=== PATIENT | male | born 1965 | race African-American/Black ===

== ENCOUNTER → 2018-09-24 14:29 | Outpatient (CLI) | payer BC ==
--- NOTE | 2018-09-29 14:51 | ST ---
PATIENT:ROSA LIANG MEDICAL RECORD: [id number] SEX: M LOCATION:[facility] ORDER #: ADMISSION DATE: 09/24/18 AGE OF PATIENT: 53 REFERRING PHYSICIAN: INTERPRETING PHYSICIAN: KAREN DURHAM MD DATE OF SERVICE: 09/24/2018 PROCEDURE: Treadmill stress test. Baseline ECG is normal. Exercised for 7 minutes under Hector protocol. Maximum heart rate 168 beats per minute, greater than 85% of max predicted. No ECG change for ischemia. No symptoms of ischemia. Normal blood pressure response to exercise. No arrhythmias noted. Fair exercise tolerance for age. TRANSINT:[id number] Voice Confirmation ID: [id number] DOCUMENT ID: [id number] KAREN DURHAM MD at 1451 CC: [id number] DICTATION DATE: 09/28/181416 FOOD SERVICE DRIVER: 09/28/[address] [facility] CLI 09/24/[address] [id number]
== END | disposition home or self-care (01) ==
LOC: D.HCCARDIO 14:29
DX: R07.9 Chest pain, unspecified (principal)